=== PATIENT | female | born 1975 | race African-American/Black ===

== ENCOUNTER 2019-01-27 00:01 | Emergency (ER) | payer OTHER ==
[~2019-01-27] VITALS: Ht 162.6 cm; Wt 98.0 kg
[2019-01-27 00:27] VITALS: BP 168/74
== END 2019-01-27 01:34 | disposition home or self-care (01) ==
LOC: ER 00:01
DX: M79.18 Myalgia, other site (principal); M79.604 Pain in right leg; D64.9 Anemia, unspecified; Z98.890 Other specified postprocedural states
CPT/HCPCS: 82962; 99282